=== PATIENT | female | born 1980 | race Caucasian/White ===

== ENCOUNTER 2016-11-19 08:00 | Emergency (ER) | payer OTHER ==
[~2016-11-19] VITALS: Wt 92.0 kg
[2016-11-19] MEDS ORDERED: HYDROCODONE/APAP (5/325) TAB PO ONE (09:00)
[2016-11-19] MEDS ORDERED: NPH10OT RIGHT EAR (09:11)
[2016-11-19] MEDS ORDERED: AMOX1TAB10 PO (09:11)
[2016-11-19] MEDS ORDERED: IBUP-1542 PO (09:12)
[2016-11-19] MEDS ORDERED: ACET500C5 PO (09:13)
--- NOTE | 2016-11-19 15:55 | ERD ---
ER Documentation Chief Complaint Date/Time DATE: 11/19/16 TIME: 15:52 Chief Complaint RIGHT EAR PAIN FOR THE PAST FEW HOURS NO COUGH OR CONGESTION HPI This is a 36-year-old female who presents emergency department today complaining of right ear pain for the past 3 days. States he put some drops in her ear but she is unsure of the name. Denies any fevers or chills, sore throat. ROS All systems reviewed and are negative except as per history of present illness. Medications Home Meds Active Scripts Acetaminophen* (Tylophen*) 500 Mg Capsule, 1 CAP PO Q6H Y for PAIN AND OR ELEVATED TEMP, #30 CAP Prov:JUAN A RENDON PA-C 11/19/16 Ibuprofen* (Motrin*) 600 Mg Tab, 600 MG PO Q6, #30 TAB Prov:JUAN A RENDON PA-C 11/19/16 Neomycin/Polymyxin/Hydrocort* (Cortisporin* Otic) 10 Ml Susp, 4 DROP RIGHT EAR QID for 7 Days, EA Prov:JUAN A RENDON PA-C 11/19/16 Amoxicillin/Potassium Clav (Amox-Clav 875-125 mg Tablet) 875-125 mg Tab, 1 TAB PO BID for 7 Days, #14 TAB Prov:JUAN A RENDON PA-C 11/19/16 PMhx/Soc Medical and Surgical Hx: pt denies Surgical Hx Hx Miscellaneous Medical Probl: Yes (Anemia) Hx Alcohol Use: No Hx Substance Use: No Hx Tobacco Use: No Smoking Status: Never smoker Physical Exam Vitals Vital Signs Date Time Temp Pulse Resp B/P Pulse Ox O2 Delivery O2 Flow Rate FiO2 11/19/16 08:03 98.7 79 21 177/87 98 Physical Exam Const: Use, no acute distress Head: Atraumatic Eyes: Normal Conjunctiva ENT: Ear TM normal. Right ear with some TM swelling along the canal. Nontender mastoid no purulent drainage. Nose no drainage. Throat erythema no exudate Neck: Full range of motion..~ No meningismus. Resp: Clear to auscultation bilaterally Cardio: Regular rate and rhythm, no murmurs Skin: No petechiae or rashes Neur: Awake and alert Psych: Normal Mood and Affect Results 24 hrs Current Medications Medications (Trade) Dose Ordered Sig/Giovanni Route PRN Reason Start Time Stop Time Status Last Admin Dose Admin Acetaminophen/ Hydrocodone Bitart ([place] (5/840)) 1 tab ONCE ONCE PO 11/19/16 09:00 11/19/16 09:01 DC 11/19/16 08:44 Procedures/MDM This is a 36-year-old female who presents to the emergency department today planning of right sided ear pain for the past 3 days. On physical exam patient did have some swelling in the canal. I discussed the patient with Dr. Smith commended the patient be treated for otitis externa. He is afebrile and otherwise well-appearing. She does not have any mastoid tenderness and of low suspicion for mastoiditis. She denied any difficulty hearing. No evidence of cerumen impaction. I did give the patient a prescription for Augmentin and Cortisporin to cover for otitis media. Patient was given [place] here in the emergency department. I gave her prescription for Motrin and Tylenol for home in addition to the antibiotics. At this time the patient is stable for discharge and outpatient management. Patient should follow up with their PCP in the next 1-2 days. They may return to the emergency department sooner for any persistent or worsening of symptoms. Patient understood and agreed with the plan. Departure Diagnosis: Primary Impression: Right ear pain Condition: Fair Patient Instructions: Otitis Externa (Child) Additional Instructions: Call your primary care doctor TOMORROW for an appointment during the next 1-2 days.See the doctor sooner or return here if your condition worsens before your appointment time. Take antibiotics as prescribed. Take tylenol or motrin for pain. JUAN A RENDON PA-C Nov 19, 2016 15:55
== END 2016-11-19 09:19 | disposition home or self-care (01) ==
LOC: FTE 08:00
DX: H92.01 Otalgia, right ear (principal)
CPT/HCPCS: Z7502; Z7610; 99283